=== PATIENT | female | born 1950 | race Caucasian/White ===

== ENCOUNTER 2023-04-21 05:33 | Day surgery (SDC) | payer MEDICARE, OTHER ==
[2023-04-14 16:00] LABS: BASOPHILS # (AUTO) 0.1 X10'3 (0-0.2); BASOPHILS % (AUTO) 0.8 % (0-1); EOSINOPHILS # (AUTO) 0.1 X10'3 (0-0.9); LYMPHOCYTES # (AUTO) 2.4 X10'3 (1.1-4.8); LYMPHOCYTES % (AUTO) 23.8 % (21-51); MEAN CORPUSCULAR HEMOGLOBIN 28.6 PG (27.0-31.0); MEAN CORPUSCULAR HGB CONC 32.5 g/dL (33.0-36.5); MEAN CORPUSCULAR VOLUME 88.1 FL (78-98); MEAN PLATELET VOLUME 7.9 FL (7.4-10.4); MONOCYTES # (AUTO) 0.7 X10'3 (0-0.9); MONOCYTES % (AUTO) 7.5 % (2-12); NEUTROPHILS # (AUTO) 6.7 X10'3 (1.8-7.7); NEUTROPHILS % (AUTO) 66.9 % (42-75); PRE OP HEMATOCRIT 42.5 % (35.0-45.0); PRE OP HEMOGLOBIN 13.8 g/dL (12.0-16.0); PRE OP PLATELET COUNT 273 X10'3 (140-440); RED BLOOD COUNT 4.82 X10'6 (4.20-5.60); RED CELL DISTRIBUTION WIDTH 14.1 % (11.5-14.5)
[2023-04-14 16:01] LABS: BILIRUBIN,URINE NEGATIVE (Neg); CLARITY,URINE CLEAR (Clear); COLOR,URINE YELLOW (Yellow); GLUCOSE, URINE NEGATIVE (Neg); KETONES,URINE NEGATIVE (Neg); LEUKOCYTE ESTERASE ,URINE NEGATIVE (Neg); NITRITES, URINE NEGATIVE (Neg); OCCULT BLOOD,URINE SMALL (Neg); PROTEIN,URINE NEGATIVE (Neg); UROBILINOGEN,URINE 0.2 E.U/dL (0.2-1.0)
[2023-04-14 16:06] LABS: UA COLLECTION TYPE CLN CATCH MIDSTREAM
[2023-04-14 16:07] LABS: HYALINE CASTS 0-3 /LPF (NEGATIVE); MUCUS STRANDS FEW /LPF (Neg); SQUAMOUS EPITHELIAL CELL,UR MODERATE /LPF (FEW)
[2023-04-14 16:09] LABS: BACTERIA,URINE FEW /HPF (Neg); TRANSITIONAL EPI CELLS,URINE FEW /HPF
[2023-04-14 16:22] LABS: ALBUMIN 3.7 G/DL (3.4-5.0); ALBUMIN/GLOBULIN RATIO 0.9 (1.1-1.5); ALKALINE PHOSPHATASE 116 IU/L (46-116); BLOOD UREA NITROGEN 12 MG/DL (7-18); CALCIUM 9.5 MG/DL (8.5-10.1); CHLORIDE 103 MMOL/L (99-107); PRE OP ALT 34 U/L (30-65); PRE OP ANION GAP 8 (8-16); PRE OP AST 36 U/L (10-37); PRE OP BILIRUB, TOTAL 0.3 MG/DL (0.0-1.0); PRE OP GLUCOSE 96 MG/DL (70-104); PRE OP SODIUM 139 MMOL/L (135-145); TOTAL CARBON DIOXIDE 28.2 MMOL/L (24-32); eGFR 54 ML/MIN
[2023-04-21] VITALS (46 sets, daily range): BP systolic 113–159; BP diastolic 52–77; PULSE 64–91; RESP 10–20; TEMP 75–98.3; O2SAT 90–99
[~2023-04-21] VITALS: Ht 160 cm; Wt 82.3 kg
[~2023-04-21 05:33] MED LIST: ALBU18HF2 INH; ATOR10TA87 PO; CALC600T14 PO; CETI10TA14 PO; CHOL100046 PO; FLUT1BLS16 INH; LOSA25TA41 PO; MAGN250T29 PO; MONT-47 PO; VITA-268 PO; VITA400T10 PO; albuterol 2.5 MG/3 ML nebule NEB ONE; ceFOXitin 2GM-NS 100mL ADDvant 100 ML IV ONE; famotidine 20mg tablet PO ONE; ringers solution, lacted 1,000 ML IV SCH
[2023-04-21] MEDS ORDERED: clindamycin phosphate 40gm vag cream ONE (06:51)
[2023-04-21] MEDS ORDERED: vasoPRESSIN 20 units/ml inj. ONE (06:51)
[2023-04-21] MEDS ORDERED: midazolam 1 mg/ML 2ml injection ONE (07:28)
[2023-04-21] MEDS ORDERED: fentaNYL/PF 50MCG/1 ML 2ML syringe ONE (07:28)
[2023-04-21] MEDS ORDERED: propofol inj 20 ML IV ONE (07:29)
[2023-04-21] MEDS ORDERED: LIDOcaine 2% (20mg/ml) 5ml vial ONE (07:29)
[2023-04-21] MEDS ORDERED: dexamethasone sod phosphate 10mg/ml inj ONE (07:30)
[2023-04-21] MEDS ORDERED: sevoflurane 250ml liquid IH ONE (07:30)
[2023-04-21] MEDS ORDERED: acetaminophen 1,000mg/100ml IV 100 ML IV ONE (08:17)
[2023-04-21] MEDS ORDERED: clindamycin phosphate 40gm vag cream VG ONE (08:50)
[2023-04-21] MEDS ORDERED: ondansetron/PF 4mg/2ml inj ONE (08:50)
[2023-04-21] MEDS ORDERED: diphenhydrAMINE 50 mg/ml inj IV PRN (08:55)
[2023-04-21] MEDS ORDERED: HYDROcodone/acetaminophen 5mg/325mg tablet PO PRN ×2 (08:55)
[2023-04-21] MEDS ORDERED: temazepam 15mg capsule PO PRN (08:55)
[2023-04-21] MEDS ORDERED: metoclopramide 5 mg/ml inj IV PRN (08:55)
[2023-04-21] MEDS ORDERED: albuterol 2.5 MG/3 ML nebule NEB PRN (08:55)
[2023-04-21] MEDS ORDERED: magnesium hydroxide 30ml (MOM) UD suspension PO PRN (08:55)
[2023-04-21] MEDS ORDERED: LORazepam 2 mg/ml vial IV PRN (08:55)
[2023-04-21] MEDS ORDERED: ondansetron/PF 4mg/2ml inj IV PRN ×2 (08:55→12:25)
[2023-04-21] MEDS ORDERED: ketorolac trometh. 30mg/ml inj. IV PRN (08:55)
[2023-04-21] MEDS ORDERED: normal saline 500ml IV soln 500 ML IV PRN (08:55)
[2023-04-21] MEDS ORDERED: proCHLORperazine 10 MG/2 ml inj IV PRN (12:25)
[2023-04-21] MEDS ORDERED: labetalol 20mg/4ml (5mg/ml) syringe IV PRN (12:25)
[2023-04-21] MEDS ORDERED: enalaprilat dihydrate 2.5mg/2ml vial IV PRN (12:25)
[2023-04-21] MEDS ORDERED: meperidine/PF 25mg/ml syringe IV PRN ×5 (12:25→12:30)
[2023-04-21] MEDS ORDERED: morphine 2 MG/ML inj. syringe IV PRN (12:25)
[2023-04-21] MEDS ORDERED: ringers solution, lacted 1,000 ML IV SCH (12:25)
[2023-04-21] MEDS ORDERED: morphine 4 MG/ML inj SYRINge IV PRN (12:25)
[2023-04-21] MEDS ORDERED: non-formulary drug (Albuterol Sulfate (Ventolin Hfa) 2 PUFFS) INH PRN (15:10)
[2023-04-21] MEDS ORDERED: vitamin E 400 unit capsule PO SCH (15:10)
[2023-04-21] MEDS: ringers solution, lacted 1,000 ML IV SCH ×3 (16:55→18:52)
[2023-04-21] MEDS ORDERED: losartan 25mg tablet PO ONE (21:45)
[2023-04-21] MEDS ORDERED: atorvastatin 10mg tablet PO ONE (21:45)
[2023-04-21] MEDS: docusate sod 100mg capsule PO SCH (22:07)
[2023-04-22 02:00] VITALS: BP 107/53; PULSE 71; RESP 13; TEMP 97.9; O2SAT 96
[2023-04-22 06:00] VITALS: BP 142/67; PULSE 63; RESP 15; TEMP 97.4; O2SAT 93
[2023-04-22 06:57] LABS: BASOPHILS % (AUTO) 0.2 % (0-1); EOSINOPHILS % (AUTO) 0 % (0-6); HEMATOCRIT 38.3 % (35.0-45.0); HEMOGLOBIN 12.6 g/dl (12.0-16.0); LYMPHOCYTES # (AUTO) 1.9 X10'3 (1.1-4.8); LYMPHOCYTES % (AUTO) 14.3 % (21-51); MEAN CORPUSCULAR HEMOGLOBIN 28.7 PG (27.0-31.0); MEAN CORPUSCULAR HGB CONC 32.8 g/dL (33.0-36.5); MEAN CORPUSCULAR VOLUME 87.6 FL (78-98); MEAN PLATELET VOLUME 7.6 FL (7.4-10.4); MONOCYTES # (AUTO) 0.8 X10'3 (0-0.9); MONOCYTES % (AUTO) 5.8 % (2-12); NEUTROPHILS # (AUTO) 10.4 X10'3 (1.8-7.7); NEUTROPHILS % (AUTO) 79.7 % (42-75); PLATELET COUNT 261 X10'3 (140-440); RED BLOOD COUNT 4.37 X10'6 (4.20-5.60); RED CELL DISTRIBUTION WIDTH 14.5 % (11.5-14.5)
[2023-04-22 07:11] LABS: ALBUMIN 3.2 G/DL (3.4-5.0); ANION GAP 6 (8-16); BLOOD UREA NITROGEN 11 MG/DL (7-18); BUN/CREATININE RATIO 13.3 (10.0-20.0); CHLORIDE 104 MMOL/L (99-107); CREATININE 0.83 MG/DL (0.40-0.90); GLUCOSE 99 MG/DL (70-104); POTASSIUM 3.8 MMOL/L (3.5-5.1); SODIUM 139 MMOL/L (135-145); TOTAL CARBON DIOXIDE 29.2 MMOL/L (24-32); eCRCL 49 ML/MIN; eGFR 67 ML/MIN
[2023-04-22 07:30] VITALS: RESP 18; O2SAT 94
[2023-04-22] MEDS: docusate sod 100mg capsule PO SCH (07:58)
[2023-04-22] MEDS ORDERED: cholecalciferol (vitamin D3) 1,000 unit (25mcg) tablet PO SCH (08:00)
[2023-04-22] MEDS ORDERED: calcium carbonate 500mg tablet PO SCH (08:00)
[2023-04-22] MEDS ORDERED: Fluticasone/Umeclidin/Vilanter (Trelegy Ellipta 200-62.5-25) PO SCH (08:00)
[2023-04-22] MEDS ORDERED: cetirizine 10mg tablet PO SCH (08:00)
[2023-04-22] MEDS ORDERED: vitamin B comp w/Vit. C tab 1 TAB TABLET PO SCH (08:00)
[2023-04-22] MEDS ORDERED: montelukast 10mg tablet PO SCH (08:00)
[2023-04-22] MEDS: ringers solution, lacted 1,000 ML IV SCH (08:55)
[2023-04-22 10:00] VITALS: BP 121/57; PULSE 69; RESP 14; TEMP 98.1; O2SAT 94
[2023-04-22 10:22] VITALS: PULSE 75; RESP 14; O2SAT 95
[2023-04-22] MEDS ORDERED: losartan 25mg tablet PO SCH (21:00)
[2023-04-22] MEDS ORDERED: atorvastatin 10mg tablet PO SCH (21:00)
== END 2023-04-22 12:15 | disposition home or self-care (01) ==
LOC: PAS 05:33 → UNDOADMOB 09:03 → ORTHO 4S 09:03 → PAS 04-22 12:15 → UNDODISOB 04-22 12:15
PROVIDERS: ATTEND Obstetrics & Gynecology Obstetrics
DX: N81.3 Complete uterovaginal prolapse (principal); E78.5 Hyperlipidemia, unspecified; I10 Essential (primary) hypertension; J44.9 Chronic obstructive pulmonary disease, unspecified; Z79.899 Other long term (current) drug therapy; Z90.710 Acquired absence of both cervix and uterus; Z98.890 Other specified postprocedural states; Z90.722 Acquired absence of ovaries, bilateral; Z87.891 Personal history of nicotine dependence; Z87.440 Personal history of urinary (tract) infections
CPT/HCPCS: 36415; 57260; 71046; 80048; 80053; 81001; 82948; 85025; 86870; 86880; 86885; 86900; 86901; 86905; 86922; 87077; 87088; 87186; 93005; 94760; J0131; J0694; J1100; J2175; J2250; J2405; J2704; J3010; J3490; J7030; J7120; Z7506; Z7508; Z7512; A4338; A4615; A4618; A5200; A7000; G0378

== ENCOUNTER 2025-04-05 14:01 | Outpatient (CLI) | payer MEDICARE, OTHER ==
[~2025-04-05] VITALS: Ht 160.7 cm; Wt 77.1 kg
[~2025-04-05 14:01] MED LIST changes: -albuterol 2.5 MG/3 ML nebule NEB ONE; -ceFOXitin 2GM-NS 100mL ADDvant 100 ML IV ONE; -famotidine 20mg tablet PO ONE; -ringers solution, lacted 1,000 ML IV SCH
[2025-04-05 14:37] LABS: ABG BASE EXCESS 0.1 mmol/L (-2.0-3.0); ABG HCO3 23.8 mmol/L (21.0-28.0); ABG OXYGEN SATURATION 95.9 % (94.0-98.0); ABG PCO2 (T) 35.7 mmHg (32.0-45.0); ABG PH (T) 7.442 (7.350-7.450); ABG PO2 (T) 75.2 mmHg (83.0-108.0); ALLEN'S TEST POSITIVE; FCOHb 0.8 % (0.5-1.5); FHHb 4.1 % (0.0-5.0); FIO2 21.0 mmHg/%; FMetHb 0.3 % (0.0-1.5); FO2Hb 94.8 % (94.0-98.0); MODE ROOM AIR; PATIENT TEMPERATURE 37.0; TOTAL HEMOGLOBIN 13.4 G/dl (12.0-16.0)
[2025-04-05] MEDS: albuterol 2.5 MG/3 ML nebule NEB ONE (15:11)
[2025-04-05 15:25] VITALS: PULSE 84; RESP 16; O2SAT 96
[2025-04-05 15:36] VITALS: PULSE 90; RESP 16
--- NOTE | 2025-04-10 12:15 | PROCEDURE NOTE - Respiratory ---
Procedure Note-Respiratory Providers to Copies To 1: TIA CRAIG MD Procedure Name: This is a complete pulmonary function study dated April 05, 2025. Hemoglobin measurement was done as part of the study. There was also a room air blood gas obtained from this patient on the same date. Spirometry measurements: The forced vital capacity is normal. The FEV1 shows severe reduction at 0.78 L. the FEV1 ratio is also significantly reduced. All of the measured flow rates show significant reduction. After inhaled bronchodilator was administered, there was only very minimal improvement in the flow volume curve. Spirometry documents very advanced obstructive ventilatory defect. Lung volume measurements: The total lung capacity is elevated. The functional residual capacity and the residual volume measurements also show elevation. This documents hyperinflation with air trapping within the lungs. Lung diffusion measurement: The DLCO measurement is substantially reduced. It is noted that the KVO measurement is very much reduced while the alveolar volume measurement remains normal. It is noted that the hemoglobin measurement is in the normal range. Airway resistance measurement: The airway resistance is elevated. Conclusion: This study documents severe abnormality. There is obstructive ventilatory defect in the very severe category. 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 This patient shows hyperinflation with air trapping within the lungs. These findings together with the very low DLCO measurement indicates the presence of emphysema. This patient should abstain from cigarette smoking. Bronchodilator therapy should continue for this patient. We have no previous studies for comparison. A blood gas was drawn from this patient while the patient was breathing ambient air. The blood pH is normal. The pCO2 is normal. The room air PO2 level is slightly reduced at 75 mmHg. ROSCOE LEVY MD Apr 10, 2025 12:15
== END 2025-04-05 23:59 | disposition home or self-care (01) ==
LOC: RT 14:01
PROVIDERS: ATTEND Surgery
DX: J98.4 Other disorders of lung (principal)
CPT/HCPCS: 36600; 82803; 85018; 94060; 94727; 94729; 94760; A6258; A6449

== ENCOUNTER 2025-04-17 09:10 | Day surgery (SDC) | payer MEDICARE, OTHER ==
[~2025-04-17] VITALS: Ht 160 cm; Wt 78.7 kg
[2025-04-17] VITALS (11 sets, daily range): BP systolic 97–140; BP diastolic 34–78; PULSE 85–96; RESP 14–17; TEMP 98.2; O2SAT 94–100
--- NOTE | 2025-04-17 10:00 | RADIOLOGY REPORT ---
DI CHEST,TWO VIEWS CLINICAL HISTORY: PRE OP HEART CATH/pain COMPARISON: DI CHEST,TWO VIEWS on DOS: 04/14/23 TECHNIQUE: Frontal and lateral view of the chest was obtained FINDINGS: Lines and Tubes: None Lungs: No focal consolidation. Pleura: No effusion. No pneumothorax. Cardiomediastinal contours: Unremarkable Bones: No acute osseous abnormality. IMPRESSION: No acute cardiopulmonary disease.
[2025-04-17 10:35] LABS: MEAN PLATELET VOLUME 7.7 FL (7.4-10.4); RED CELL DISTRIBUTION WIDTH 14.7 % (11.5-14.5)
--- NOTE | 2025-04-17 10:40 | ELECTROCARDIOGRAPH REPORT ---
[facility] Test Date: 2025-04-17 Test Time: 10:38:32 Pat Name: PAOLA MELTON Department: [facility] Patient ID: [facility]-[id number] Room: Gender: F [employer] Installer: WILY : 1950 Requested By: DAVIDE MANCIA Order Number: [id number] Reading MD: Dr. Petey Combs Measurements Intervals [place] Rate: 85 P: 83 DC: 146 QRS: 79 QRSD: 97 T: 76 QT: 361 QTc: 430 Interpretive Statements Sinus rhythm Electronically Signed On 04-17-2025 16:31:[address] Petey Combs Please click the below link to view image of tracing.
[2025-04-17] MEDS ORDERED: LOSA50TA64 PO (10:44)
[2025-04-17] MEDS ORDERED: ATOR10TA70 PO (10:44)
[2025-04-17] MEDS ORDERED: CETI10CA PO (10:45)
[2025-04-17 10:47] LABS: APTT 30 SECONDS (22-32); INR 1.1 INR
[2025-04-17 10:48] LABS: CREATININE 0.83 MG/DL (0.40-0.90); TOTAL CARBON DIOXIDE 29.8 MMOL/L (24-32); eCRCL 48 ML/MIN; eGFR 67 ML/MIN
[2025-04-17] MEDS ORDERED: VITA40TA (10:48)
[2025-04-17] MEDS ORDERED: [UNRECOGNIZED DRUG - OTHER] PO (10:49)
[2025-04-17] MEDS ORDERED: fentaNYL/PF 50MCG/1 ML 2ML syringe ONE (11:09)
[2025-04-17] MEDS ORDERED: LIDOcaine 1% 30ml preserv. free vial ONE (11:09)
[2025-04-17] MEDS ORDERED: iohexol 350 MG/ML 50ML vial IV ONE (11:09)
[2025-04-17] MEDS ORDERED: midazolam 1 mg/ML 2ml injection ONE (11:09)
[2025-04-17] MEDS ORDERED: nitroGLYCERIN 500mcg/5mL D5W 5 ML IV ONE (11:34)
[2025-04-17] MEDS ORDERED: hydrALAZINE 20mg/ml inj. ONE (11:49)
[2025-04-17] MEDS ORDERED: verapamil 2.5 mg/ml inj IV ONE (11:55)
[2025-04-17] MEDS ORDERED: phenylephrine 10mg/ml inj. ONE (12:20)
[2025-04-17] MEDS ORDERED: normal saline 1000ml 1,000 ML IV SCH (12:55)
[2025-04-17] MEDS ORDERED: HYDROcodone/acetaminophen 5mg/325mg tablet PO PRN (12:55)
[2025-04-17] MEDS: ondansetron/PF 4mg/2ml inj IV PRN (12:58)
[2025-04-17] MEDS: OXAZEpam 15mg capsule PO PRN (12:58)
[2025-04-17] MEDS: HYDROcodone/acetaminophen 10/325mg tab PO PRN (13:25)
--- NOTE | 2025-04-17 19:02 | CARDIOLOGY REPORT ---
DATE OF SERVICE: 04/17/2025 DICTATING PHYSICIAN: Edward Berry MD PROCEDURES: * Left heart catheterization. * Left ventriculography. * Selective left and right coronary arteriography. * Right iliofemoral arteriogram and Angio-Seal application. CONSCIOUS SEDATION ADMINISTRATION: 30 minutes. 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 Brother at age 58 from [place]. She continues to smoke cigarettes. She has severe COPD, DLCO of 56%, oxygen use, hypertension and has class 3 dyspnea on exertion with chest pressure tightness suggestive of angina. She has coronary calcification on CT/PET scan. Risks, benefits, and alternatives of diagnostic coronary angiography were discussed with her and she has decided to proceed. Risks included, but not restricted to, , stroke, myocardial infarction, renal failure, neurologic or vascular complications, bleeding complications, and allergic reaction. TECHNIQUE: Following the usual sterile preparation and drape, the right groin was infiltrated with 10 mL of 1% lidocaine local anesthetic. The patient was noted to be hypertensive on arrival 209/85-90. She has not taken her antihypertensives this a.m. She was sedated with 1 mg Versed and 25 mcg of fentanyl. During the procedure, she required 10 mg of Apresoline x 2 for blood pressure control, as she had liana sheath oozing, verapamil 2.5 mg intravenously for blood pressure and rate control. Heart rate was above 100 and 350 mcg of intra-arterial nitroglycerin for blood pressure for control post procedure. After the procedure was completed and Angio-Seal had been applied, she had a vagal response. Blood pressure was 60 systolic, heart rate 60 and required Walter-Synephrine 200 mcg bolus. Normal saline 250 mL bolus. Subsequent improvement to heart rate of 85 and blood pressure 120/80. Thereafter, she was transported to the recovery room. Following usual sterile preparation and draping, 10 mL of 1% lidocaine was administered. The patient was maintained on oxygen 2 liters per minute. Following single wall puncture technique, a J-tip guidewire lead, a 6-Cymro sheath was introduced to the right femoral artery. Left and right coronary arteriography and multiple projectional obliquities were performed with 6-Cymro femoral left 4 diagnostic Arianne-shaped catheters. Left ventriculography and right anterior oblique projection were performed with a straight pigtail catheter. Catheter exchanges were performed under fluoroscopic guidance with the J-tip guidewire lead. At termination, Angio-Seal was applied in the receiver/laborer. Hemostasis was obtained. There were no complications. Postprocedure, the patient had a vagal response with hypotension. FINDINGS: AO 209/85, LV 208/15/20 during expiration. During inspiration, AO 160/73, LV 160/1-6. Left ventriculogram post PVC ejection fraction 80% hyperdynamic. Right iliofemoral artery is smooth. A 74-year-old female, 5 feet 3 inches, 174 pounds. Light calcification is noted in the proximal left anterior descending and in the right coronary. There is a very short, smooth left main coronary artery. Left anterior descending has scattered 15% narrowings, wraps around the apex of the myocardium, long vessel. 1.5 mm in the midportion, 1 mm in the distal one-half. Diagonals are less than 1 mm in diameter, tortuous vessels. Left circumflex provides a proximal obtuse marginal 1.5 mm vessel. It is a tortuous serpentine appearing vessel. Right coronary is ostial calcification. The posterior descending is 1.5 mm in diameter. It reaches the apex. There is a long distal right coronary with 0.75 mm posterolateral branches. RESULTS: * Normal left ventriculogram, ejection fraction of 80%. * Very short smooth left main coronary artery. * 15% narrowing of the left anterior descending and narrow vessel 1.5 to 1 mm in diameter. * Left circumflex obtuse marginal 1.5 mm vessel, smooth. * Ostial calcific right coronary. No narrowing. Posterior descending 1.5 mm. Posterolateral branch is 0.75 mm. COMMENT: The patient has mild coronary artery disease. Small vessels for body size. No cardiac contraindication to proceed with surgery as is needed. Edward Berry MD TID: [id number] RECEIPT: [id number] TR/MOISES cc: Huang Wagner MD(User)
[2025-04-17] MEDS ORDERED: ACETYLCYSTEINE 200 MG/1 ML 4 ML ORAL SOLUTION PO SCH (20:00)
== END 2025-04-17 17:55 | disposition home or self-care (01) ==
LOC: SSTAY O 09:10
PROVIDERS: ATTEND Internal Medicine Cardiovascular Disease
DX: I25.10 Atherosclerotic heart disease of native coronary artery without angina pectoris (principal); I10 Essential (primary) hypertension; J44.9 Chronic obstructive pulmonary disease, unspecified; I25.2 Old myocardial infarction; F17.210 Nicotine dependence, cigarettes, uncomplicated; Z86.73 Personal history of transient ischemic attack (TIA), and cerebral infarction without residual deficits
CPT/HCPCS: 36415; 71046; 80048; 85025; 85610; 85730; 93005; 93458; 99152; 99153; A6258; C1760; J0360; J1644; J2003; J2250; J2371; J2405; J3010; J3490; J7030; Q0163; Q9967; Z7610